=== PATIENT | female | born 1940 | race Two or more races ===

== ENCOUNTER 2020-02-17 13:48 | Outpatient (CLI) | payer OTHER ==
[~2020-02-17] VITALS: Ht 167.6 cm; Wt 78.9 kg
[2020-02-17] MEDS ORDERED: LIPITOR20 MG (14:09)
[2020-02-17] MEDS ORDERED: COZAAR50 MG (14:09)
[2020-02-17] MEDS ORDERED: DICLOFENAC SODI25 MG (14:10)
[2020-02-17] MEDS ORDERED: MOBIC7.5 MG (14:11)
[2020-02-17] MEDS ORDERED: ECOTRIN81 MG (14:11)
[2020-02-17] MEDS ORDERED: DOLOGESIC 500-1 EACH (14:11)
== END 2020-02-17 14:00 | disposition home or self-care (01) ==
LOC: OFIC 805 13:48
PROVIDERS: ATTEND Otolaryngology
DX: H61.23 Impacted cerumen, bilateral (principal); G47.33 Obstructive sleep apnea (adult) (pediatric); H90.3 Sensorineural hearing loss, bilateral